=== PATIENT | male | born 2000 | race Two or more races ===

== ENCOUNTER 2022-03-22 13:48 | Emergency (ER) | payer OTHER ==
[2022-03-22 13:58] VITALS: BP 147/89
--- NOTE | 2022-03-22 14:11 | XRAY Report ---
PROCEDURE: Chest 2 View X-Ray INDICATIONS: Productive cough TECHNIQUE: 2 views of the chest were acquired. COMPARISON: None. FINDINGS: Surgical changes and devices: None. Lungs and pleura: No pleural effusions or pneumothorax. Lungs are clear. Mediastinum: Mediastinal contours are normal. Heart size is normal. Bones and chest wall: No suspicious bony abnormalities. Soft tissues appear unremarkable. IMPRESSION: No acute cardiopulmonary process demonstrated radiographically. Reviewed by: Kranthi Park MD on 03/22/2022 2:10 PM PST Approved by: Kranthi Park MD on 03/22/2022 2:10 PM [facility] Station ID: [id number]
--- NOTE | 2022-03-22 15:07 | ED Physician Documentation ---
PD HPI DYSPNEA - Stated complaint Stated Complaint: CHEST COUGH - Chief complaint Chief Complaint: Resp - History obtained from History obtained from: Patient - Additional information Additional information: Previously healthy 21-year-old gentleman has been sick for about 4 to 5 days with nonproductive cough, nasal congestion. His father had RSV. He has no health problems. He is not short of breath. Review of Systems Constitutional: denies: Fever, Chills Nose: reports: Rhinorrhea / runny nose, Congestion Throat: reports: Sore throat Respiratory: reports: Cough. denies: Dyspnea PD PAST MEDICAL HISTORY - Present Medications Home Medications: Ambulatory Orders Medication Instructions Recorded Confirmed Albuterol Sulf [Ventolin Hfa 1 - 2 puffs INH Q4HR PRN #1 each 03/22/22 Inhaler] Benzonatate [Tessalon] 200 mg PO TID PRN #20 cap 03/22/22 Guaifenesin/Pseudoephedrne HCl 1 each PO BID PRN #20 tab 03/22/22 [Mucinex D ER 600-60 mg Tablet] - Allergies Allergies/Adverse Reactions: Allergies Allergy/AdvReac Type Severity Reaction Status Date / Time No Known Drug Allergies Allergy Verified 03/22/22 13:58 PD ED PE NORMAL - Vitals Vital signs reviewed: Yes - General General: Alert and oriented X 3, No acute distress - HEENT HEENT: Ears normal, Pharynx benign - Neck Neck: Supple, no meningeal sign, No bony TTP - Cardiac Cardiac: RRR, No murmur - Respiratory Respiratory: No respiratory distress, Clear bilaterally - Abdomen Abdomen: Non tender - Back Back: No CVA TTP, No spinal TTP - Derm Derm: Normal color, Warm and dry - Extremities Extremities: No edema, No calf tenderness / cord - Neuro Neuro: Alert and oriented X 3, Normal speech Results - Vitals Vitals: Vital Signs - 24 hr 03/22/22 13:54 Temperature 36.1 C L Heart Rate 105 H Respiratory 16 Rate Blood Pressure 147/89 H O2 Saturation 97 Oxygen O2 Source Room air PD Medical Decision Making - ED course ED course: 21-year-old with viral URI, likely RSV given his exposure. Departure - Departure Disposition: 01 Home, Self Care Clinical Impression: Upper respiratory tract infection Qualifiers: URI type: unspecified viral URI Qualified Code(s): J06.9 - Acute upper respiratory infection, unspecified Condition: Good Record reviewed to determine appropriate education?: Yes Instructions: ED Viral Syndrome Prescriptions: Albuterol Sulf [Ventolin Hfa Inhaler] 1 - 2 puffs INH Q4HR PRN #1 each PRN Reason: Shortness Of Air/Wheezing Guaifenesin/Pseudoephedrne HCl [Mucinex D ER 600-60 mg Tablet] 1 each PO BID PRN #20 tab PRN Reason: congestion Benzonatate [Tessalon] 200 mg PO TID PRN #20 cap PRN Reason: Cough Comments: As discussed, you likely have RSV based on your exposure to same. This is not a serious illness in most adults but we expect the cough to last some time. Return for new or worsening symptoms. Please inform your flight surgeon or PCM about this emergency department visit. Discharge Date/Time: 03/22/22 15:24
== END 2022-03-22 15:24 | disposition home or self-care (01) ==
LOC: ED 13:48
DX: J06.9 Acute upper respiratory infection, unspecified (principal)
CPT/HCPCS: 99282; 99283